=== PATIENT | female | born 1965 | race American Indian/Alaskan Native ===

== ENCOUNTER 2017-06-21 11:49 | Emergency (ER) | payer BC ==
[2017-06-21 12:42] LABS: Basophils % (Auto) 1.2 % (0.0-1.8); Eosinophils % (Auto) 1.6 % (0.0-4.3); Hematocrit 52.9 % (30.3-42.9); Hemoglobin 17.3 gm/dl (10.1-14.3); Mean Corpuscular HGB Conc 33 % (30-34); Mean Corpuscular Hemoglobin 28 pg (28-32); Mean Corpuscular Volume 84 fl (79-97); Platelet Count 213 K/mm3 (140-440); Red Blood Count 6.29 M/mm3 (3.65-5.03); White Blood Count 5.9 K/mm3 (4.5-11.0)
[2017-06-21] MEDS ORDERED: NORMODYNE IV ONE (12:47)
[2017-06-21 12:55] LABS: Anion Gap 19 mmol/L; BUN/Creatinine Ratio 13; Blood Urea Nitrogen 9 mg/dL (7-17); Calcium 9.3 mg/dL (8.4-10.2); Carbon Dioxide 26 mmol/L (22-30); Chloride 99.7 mmol/L (98-107); Glucose 114 mg/dL (65-100); Potassium 4.4 mmol/L (3.6-5.0); Sodium 140 mmol/L (137-145)
[2017-06-21] MEDS ORDERED: CATAPRES PO ONE (14:04)
[2017-06-21] MEDS ORDERED: CATAPRES ONE (14:06)
--- NOTE | 2017-06-21 14:38 | Emergency Department Report ---
HPI - General Chief Complaint: High BP Time Seen by Provider: 06/21/17 14:14 - HPI HPI: Room 3 The patient is a 52-year-old female presenting with a chief complaint of hypertension. The patient states she went to a clinic today and thought her blood pressure was elevated and was sent to the ED for evaluation/management. The patient states she's been out of her lisinopril, clonidine and metoprolol for approximately 2 days. Patient states she does feel sleepy and sluggish but denies pain of any type. Patient states she had a headache in triage but has since resolved and she has zero pain. Incidentally the patient states that she accidentally struck herself left arm with a box 2 days ago. Patient denies pain to states her left thigh has been red. Patient denies blurred vision. Location: [See above] Duration: [See above] Quality: Painless Severity: Moderate Modifying factors: [see above] Context: [see above] Mode of transportation: [not driving] ED Past Medical Hx - Past Medical History Previous Medical History?: Yes Hx Hypertension: Yes - Surgical History Past Surgical History?: Yes Additional Surgical History: c section - Family History Family history: no significant - Social History Smoking Status: Current Every Day Smoker (08/04 pack per day) Substance Use Type: None (denies illicit drug use) - Medications Home Medications: Home Medications Medication Instructions Recorded Confirmed Last Taken Type Metoprolol [Lopressor TAB] 100 mg PO BID #90 tablet 06/21/17 Unknown Rx cloNIDine [Catapres] 0.1 mg PO BID #90 tablet 06/21/17 Unknown Rx ED Review of Systems ROS: Stated complaint: BLOOD PRESSURE ELEVATED Other details as noted in HPI Eyes: other (red left eye). denies: eye pain, vision change ENT: denies: ear pain Cardiovascular: denies: chest pain Gastrointestinal: denies: abdominal pain, nausea, vomiting Genitourinary: denies: dysuria Musculoskeletal: denies: back pain Neurological: denies: headache Physical Exam - Physical Exam Vital Signs: Vital Signs 06/21/17 06/21/17 06/21/17 11:57 12:51 14:05 Temperature 98.4 F Pulse Rate 98 H 98 H 97 H Respiratory 16 Rate Blood Pressure 257/116 257/116 241/102 O2 Sat by Pulse 99 Oximetry Physical Exam: GENERAL: The patient is well-developed well-nourished female lying on stretcher not appearing to be in acute distress. [] HEENT: Normocephalic. Atraumatic. Extraocular motions are intact. Patient has moist mucous membranes. Slightly injected left eye. No hyphema or hypopyon seen. Concepcion lamp examination with fluorescein does not reveal corneal abrasion or streaming fluorescein NECK: Supple. Trachea midline CHEST/LUNGS: Clear to auscultation. There is no respiratory distress noted. HEART/CARDIOVASCULAR: Regular. There is no tachycardia. There is no gallop rub or murmur. ABDOMEN: Abdomen is soft, nontender. Patient has normal bowel sounds. There is no abdominal distention. SKIN: There is no rash. There is no edema. There is no diaphoresis. NEURO: The patient is awake, alert, and oriented. The patient is cooperative. The patient has no focal neurologic deficits. The patient has normal speech. Cranial nerves II through XII grossly intact, no drift MUSCULOSKELETAL: There is no evidence of acute injury. ED Course Vital Signs 06/21/17 06/21/17 06/21/17 11:57 12:51 14:05 Temperature 98.4 F Pulse Rate 98 H 98 H 97 H Respiratory 16 Rate Blood Pressure 257/116 257/116 241/102 O2 Sat by Pulse 99 Oximetry ED Medical Decision Making - Lab Data Result diagrams: 06/21/17 12:16 06/21/17 12:16 Laboratory Tests 06/21/17 06/21/17 06/21/17 12:16 12:16 15:06 WBC 5.9 RBC 6.29 H Hgb 17.3 H Hct 52.9 H MCV 84 MCH 28 MCHC 33 RDW 13.0 L Plt Count 213 Lymph % (Auto) 19.6 [place] % (Auto) 7.8 H Eos % (Auto) 1.6 Baso % (Auto) 1.2 Lymph # 1.1 L [place] # 0.5 Eos # 0.1 Baso # 0.1 Seg Neutrophils % 69.8 Seg Neutrophils # 4.1 Sodium 140 Potassium 4.4 Chloride 99.7 Carbon Dioxide 26 Anion Gap 19 BUN 9 Creatinine 0.7 Estimated GFR > 60 BUN/Creatinine Ratio 13 Glucose 114 H Calcium 9.3 Troponin T < 0.010 < 0.010 - EKG Data -: EKG Interpreted by Vt EKG shows normal: sinus rhythm Rate: normal - EKG Data When compared to previous EKG there are: previous EKG unavailable Interpretation: nonspecific ST-T wave destinee (T-wave inversion in lead aVL) - Differential Diagnosis hypertension, corneal abrasions Critical care attestation.: If time is entered above; I have spent that time in minutes in the direct care of this critically ill patient, excluding procedure time. ED Disposition Clinical Impression: Hypertension, Subconjunctival hemorrhage of left eye Disposition: DC-01 TO HOME OR SELFCARE Is pt being admited?: No Does the pt Need Aspirin: No Condition: Stable Instructions: Hypertension (ED) Additional Instructions: Return to the emergency department immediately should you develop worsening symptoms, fever, inability to tolerate food or liquid or any other concerns. Prescriptions: cloNIDine [Catapres] 0.1 mg PO BID #90 tablet Metoprolol [Lopressor TAB] 100 mg PO BID #90 tablet Referrals: PRIMARY CAREMD [Primary Care Provider] - 3-5 Days [facility] [Outside] - 3-5 Days BRAYDEN JACKSON MD [Staff Physician] - 3-5 Days (Dr. Jackson is an customer services manager. Please follow up with him for further evaluation) MANNIE NGUYỄN MD [Staff Physician] - 3-5 Days (Dr. Nguyễn is a primary physician. Please follow-up with him to be established as a patient) Time of Disposition: 16:46
[2017-06-21] MEDS ORDERED: TETRACAINE 0.5% ONE ×2 (14:58→16:42)
[2017-06-21] MEDS ORDERED: BSS ONE ×2 (14:58→16:42)
[2017-06-21] MEDS ORDERED: FUL-GLO OP ONE ×2 (14:58→16:42)
[2017-06-21] MEDS ORDERED: APRESOLINE IV ONE ×2 (15:55)
[2017-06-21 17:08] VITALS: BP 184/76
== END 2017-06-21 17:22 | disposition home or self-care (01) ==
LOC: ED 11:49
DX: I10 Essential (primary) hypertension (principal); H11.32 Conjunctival hemorrhage, left eye; F17.200 Nicotine dependence, unspecified, uncomplicated
CPT/HCPCS: 36415; 80048; 84484; 85025; 93005; 93010; 96374; 96375; 99284; J0360

== ENCOUNTER 2017-08-18 10:25 | Emergency (ER) | payer BC ==
[2017-08-18] MEDS ORDERED: TYLENOL PO ONE (11:21)
[2017-08-18] MEDS ORDERED: NORMODYNE IV ONE (11:21)
--- NOTE | 2017-08-18 11:27 | Emergency Department Report ---
ED General Adult HPI - General Chief complaint: High BP Stated complaint: HTN/HEADACHE Time Seen by Provider: 08/18/17 11:04 Source: patient Mode of arrival: Stretcher Limitations: No Limitations - History of Present Illness Initial comments: Mrs. Herrera is a pleasant 52-year-old female with severe hypertension. She normally takes metoprolol, clonidine and lisinopril. However, she stated during her ED stay evaluation in June. Lisinopril was discontinued by the physician. She did not have any history of kidney disease or allergic reaction due to the lisinopril. Today at her place of work, the nurse checked her blood pressure. Systolic was greater than 200 mm Hg. Diastolic blood pressure was 150 mm Hg. She is symptom-free except for very mild nondescript headache. She denies chest pain. She denies blurry vision. She denies bloody urine. She has not followed by primary care physician. She does smoke cigarettes. She works at an [employer] facility. She does have health insurance. - Related Data Previous Rx's Medication Instructions Recorded Last Taken Type Metoprolol [Lopressor TAB] 100 mg PO BID #90 tablet 06/21/17 Unknown Rx cloNIDine [Catapres] 0.1 mg PO BID #90 tablet 06/21/17 Unknown Rx Lisinopril 20 mg PO DAILY 30 Days #30 tablet 08/18/17 Unknown Rx cloNIDine [Catapres] 0.2 mg PO BID 30 Days #60 tablet 08/18/17 Unknown Rx Allergies Allergy/AdvReac Type Severity Reaction Status Date / Time No Known Allergies Allergy Verified 06/21/17 11:56 ED Review of Systems ROS: Stated complaint: HTN/HEADACHE Other details as noted in HPI Comment: All other systems reviewed and negative Constitutional: denies: fever, malaise Respiratory: denies: cough Cardiovascular: denies: chest pain ED Past Medical Hx - Past Medical History Hx Hypertension: Yes - Surgical History Additional Surgical History: c section - Social History Smoking Status: Current Every Day Smoker (1/14 pack per day) Substance Use Type: None (denies illicit drug use) - Medications Home Medications: Home Medications Medication Instructions Recorded Confirmed Last Taken Type Metoprolol [Lopressor TAB] 100 mg PO BID #90 tablet 06/21/17 Unknown Rx cloNIDine [Catapres] 0.1 mg PO BID #90 tablet 12/01/17 Unknown Rx Lisinopril 20 mg PO DAILY 30 Days #30 tablet 08/18/17 Unknown Rx cloNIDine [Catapres] 0.2 mg PO BID 30 Days #60 tablet 08/18/17 Unknown Rx ED Physical Exam - General Limitations: No Limitations General appearance: alert, in no apparent distress - Head Head exam: Present: atraumatic, normocephalic - Eye Eye exam: Present: normal appearance, PERRL - ENT ENT exam: Present: mucous membranes moist - Neck Neck exam: Present: normal inspection. Absent: tenderness, meningismus - Respiratory Respiratory exam: Present: normal lung sounds bilaterally. Absent: respiratory distress, wheezes, rales, rhonchi - Cardiovascular Cardiovascular Exam: Present: regular rate, normal rhythm, normal heart sounds. Absent: systolic murmur, diastolic murmur, rubs, gallop - GI/Abdominal GI/Abdominal exam: Present: soft, normal bowel sounds. Absent: distended, tenderness, guarding, rebound - Extremities Exam Extremities exam: Present: normal inspection. Absent: pedal edema - Back Exam Back exam: Present: normal inspection - Neurological Exam Neurological exam: Present: alert, oriented X3 - Psychiatric Psychiatric exam: Present: normal affect, normal mood - Skin Skin exam: Present: warm, dry, intact, normal color. Absent: rash ED Course Vital Signs 08/18/17 08/18/17 08/18/17 10:58 11:08 11:11 Temperature 98.6 F Pulse Rate 86 90 Respiratory 18 Rate Blood Pressure 241/98 Blood Pressure [Right] O2 Sat by Pulse 98 Oximetry 08/18/17 08/18/17 08/18/17 11:40 11:41 12:41 Temperature Pulse Rate 87 Respiratory 16 16 Rate Blood Pressure 206/107 Blood Pressure [Right] O2 Sat by Pulse Oximetry 08/18/17 08/18/17 13:05 15:08 Temperature Pulse Rate 79 87 Respiratory 16 Rate Blood Pressure Blood Pressure 198/84 [Right] O2 Sat by Pulse 100 Oximetry ED Medical Decision Making - Lab Data Result diagrams: 08/18/17 11:58 08/18/17 11:58 Laboratory Results - last 24 hr 08/18/17 08/18/17 11:58 11:58 WBC 6.8 RBC 5.97 H Hgb 15.8 H Hct 49.3 H MCV 83 MCH 27 L MCHC 32 RDW 12.8 L Plt Count 162 Lymph % (Auto) 18.5 [place] % (Auto) 5.4 Eos % (Auto) 1.2 Baso % (Auto) 2.2 H Lymph # 1.3 [place] # 0.4 Eos # 0.1 Baso # 0.2 H Seg Neutrophils % 72.7 H Seg Neutrophils # 5.0 Sodium 139 Potassium 4.0 Chloride 99.1 Carbon Dioxide 26 Anion Gap 18 BUN 10 Creatinine 0.6 L Estimated GFR > 60 BUN/Creatinine Ratio 17 Glucose 104 H Calcium 9.3 Vital Signs - 24 hr 08/18/17 08/18/17 08/18/17 10:58 11:08 11:11 Temperature 98.6 F Pulse Rate 86 90 Respiratory 18 Rate Blood Pressure 241/98 Blood Pressure [Right] O2 Sat by Pulse 98 Oximetry 08/18/17 08/18/17 08/18/17 11:40 11:41 12:41 Temperature Pulse Rate 87 Respiratory 16 16 Rate Blood Pressure 206/107 Blood Pressure [Right] O2 Sat by Pulse Oximetry 08/18/17 08/18/17 13:05 15:08 Temperature Pulse Rate 79 87 Respiratory 16 Rate Blood Pressure Blood Pressure 198/84 [Right] O2 Sat by Pulse 100 Oximetry - EKG Data -: EKG Interpreted by [place] - EKG Data 08/18/17 11:27 EKG obtained at 1100 Normal sinus rhythm rate of 80 left axis deviation no ST elevation positive LVH no signs of ischemia, no signs of infarct right bundle branch block present EKG is unchanged from 06/21/2017 - Medical Decision Making Mrs. Herrera has severe hypertension. She is symptom-free here in the ED. no evidence of end organ damage. She states that normally her blood pressure is elevated when she runs out of medication. She does not have a primary care physician. She states that her blood pressure is not well-controlled. I Have referred her to a primary care physician. I reviewed the electronic record. I reviewed the documentation by provider in June. No mention of lisinopril discontinuation. I will restart lisinopril. Also will increase clonidine to 0.2 mg twice a day from 0.1 mg BID Discharged home in stable condition Critical care attestation.: If time is entered above; I have spent that time in minutes in the direct care of this critically ill patient, excluding procedure time. ED Disposition Clinical Impression: Hypertensive urgency, malignant Disposition: DC-01 TO HOME OR SELFCARE Is pt being admited?: No Does the pt Need Aspirin: No Condition: Stable Instructions: Hypertensive Crisis (ED), Hypertension (ED) Prescriptions: cloNIDine [Catapres] 0.2 mg PO BID 30 Days #60 tablet Lisinopril 20 mg PO DAILY 30 Days #30 tablet Referrals: MANNIE NGUYỄN MD [Staff Physician] - 3-5 Days Time of Disposition: 15:18
[2017-08-18 12:17] LABS: Basophils # (Auto) 0.2 K/mm3 (0.0-0.1); Basophils % (Auto) 2.2 % (0.0-1.8); Eosinophils # (Auto) 0.1 K/mm3 (0.0-0.4); Eosinophils % (Auto) 1.2 % (0.0-4.3); Hematocrit 49.3 % (30.3-42.9); Hemoglobin 15.8 gm/dl (10.1-14.3); Lymphocytes # (Auto) 1.3 K/mm3 (1.2-5.4); Lymphocytes % (Auto) 18.5 % (13.4-35.0); Mean Corpuscular HGB Conc 32 % (30-34); Mean Corpuscular Hemoglobin 27 pg (28-32); Mean Corpuscular Volume 83 fl (79-97); Monocytes # (Auto) 0.4 K/mm3 (0.0-0.8); Monocytes % (Auto) 5.4 % (0.0-7.3); Platelet Count 162 K/mm3 (140-440); Red Blood Count 5.97 M/mm3 (3.65-5.03); Red Cell Distribution Width 12.8 % (13.2-15.2)
[2017-08-18] MEDS ORDERED: CATAPRES PO ONE (12:44)
[2017-08-18 13:01] LABS: BUN/Creatinine Ratio 17; Blood Urea Nitrogen 10 mg/dL (7-17); Calcium 9.3 mg/dL (8.4-10.2); Hemolysis Index 27
[2017-08-18 15:09] VITALS: BP 198/84
== END 2017-08-18 15:35 | disposition home or self-care (01) ==
LOC: ED 10:25
DX: I10 Essential (primary) hypertension (principal); F17.200 Nicotine dependence, unspecified, uncomplicated
CPT/HCPCS: 36415; 80048; 85025; 93005; 93010; 96374

== ENCOUNTER 2017-08-23 13:20 | Emergency (ER) | payer BC ==
[2017-08-23] MEDS ORDERED: NORMODYNE IV ONE ×2 (14:45→16:43)
[2017-08-23] MEDS ORDERED: APRESOLINE IV ONE (16:43)
--- NOTE | 2017-08-23 17:37 | Emergency Department Report ---
HPI - General Chief Complaint: High BP Time Seen by Provider: 08/23/17 14:43 - HPI HPI: The patient is a 52-year-old female who presents for evaluation of elevated blood pressure and lightheadedness. The patient reports mild lightheadedness since this morning, 6 hours prior to my evaluation,, exacerbated with standing up or position changes, improved with lying flat. She says that she was sent from [facility] due to recurrence of significantly elevated blood pressure. The patient denies fever, neck pain, parasthesias, motor deficit, chest pain, syncope, dyspnea, cough, hemoptysis, palpitations, unilateral leg swelling, calf muscle pain. Patient also denies cocaine or other stimulant use. ED Past Medical Hx - Past Medical History Hx Hypertension: Yes - Surgical History Additional Surgical History: c section - Social History Smoking Status: Never Smoker Substance Use Type: None - Medications Home Medications: Home Medications Medication Instructions Recorded Confirmed Last Taken Type Metoprolol [Lopressor TAB] 100 mg PO BID #90 tablet 06/21/17 Unknown Rx cloNIDine [Catapres] 0.1 mg PO BID #90 tablet 06/21/17 Unknown Rx Lisinopril 20 mg PO DAILY 30 Days #30 tablet 08/18/17 Unknown Rx cloNIDine [Catapres] 0.2 mg PO BID 30 Days #60 tablet 08/18/17 Unknown Rx Ondansetron [Zofran Odt] 4 mg PO Q8HR #20 tab.rapdis 08/23/17 Unknown Rx ED Review of Systems ROS: Stated complaint: SENT FROM CLINIC Other details as noted in HPI Constitutional: reports lightheadedness denies: fever ENT: denies: throat or neck pain Respiratory: denies: cough, shortness of breath Cardiovascular: denies: chest pain Endocrine: denies unexplained weight loss or gain Gastrointestinal: denies: abdominal pain, nausea Genitourinary: denies: dysuria Musculoskeletal: denies: leg swelling Skin: denies: rash Neurological: denies: headache Hematological/Lymphatic: denies: easy bleeding or easy bruising Psych: denies sadness or hopelessness Physical Exam - Physical Exam Vital Signs: Vital Signs 08/23/17 08/23/17 08/23/17 13:32 14:30 14:46 Temperature 98.4 F Pulse Rate 80 82 88 Respiratory 18 28 H 21 Rate Blood Pressure 239/100 205/97 205/97 O2 Sat by Pulse 100 98 99 Oximetry 08/23/17 08/23/17 08/23/17 15:00 15:16 15:22 Temperature Pulse Rate 76 77 Respiratory 17 17 18 Rate Blood Pressure 202/89 163/71 O2 Sat by Pulse 99 98 Oximetry 08/23/17 08/23/17 08/23/17 15:30 15:38 15:46 Temperature Pulse Rate 82 83 78 Respiratory 18 20 Rate Blood Pressure 196/82 187/83 O2 Sat by Pulse 98 97 Oximetry 08/23/17 08/23/17 08/23/17 16:00 16:16 16:30 Temperature Pulse Rate 76 78 77 Respiratory 16 20 20 Rate Blood Pressure 199/87 199/87 199/87 O2 Sat by Pulse 97 99 99 Oximetry 08/23/17 17:01 Temperature Pulse Rate 90 Respiratory 29 H Rate Blood Pressure 224/86 O2 Sat by Pulse 99 Oximetry Physical Exam: General: well-nourished, well-developed, no acute distress Head: Normocephalic, atraumatic Eyes: normal sclera, PERRL, EOM intact ENT: Mucous membranes are pale and dry Neck: No neck stiffness, no cervical adenopathy Respiratory: Breath sounds equal bilaterally, no wheezing, rales, or rhonchi Cardio: S1 and S2 present, no murmurs, rubs, gallops, capillary refill is delayed Abdomen: Normoactive bowel sounds, soft abdomen, no rigidity, no guarding or rebound tenderness Chest WALL/Back: No tenderness to palpation of the chest wall, no CVA tenderness with percussion Musc: No pitting edema Skin: No rash Neuro: alert oriented x4, normal cognition, speech normal, no facial drooping, no uvula or tongue deviation on protrusion, no deficit with rotation of neck or shoulder shrug, no obvious gross motor deficit in the upper or lower extremities with flexion or extension at the shoulder, elbow, wrist, hip, knee, or ankle bilaterally, no obvious gross sensation deficit to crude touch or 2 pt discrimination, 2+ symmetric reflexes on DTR testing, no coordination deficit with [id number] or [id number] testing, romberg negative, patient able to to ambulate without abnormal gait Psych: Normal affect ED Course Vital Signs 08/23/17 08/23/17 08/23/17 13:32 14:30 14:46 Temperature 98.4 F Pulse Rate 80 82 88 Respiratory 18 28 H 21 Rate Blood Pressure 239/100 205/97 205/97 O2 Sat by Pulse 100 98 99 Oximetry 08/23/17 08/23/17 08/23/17 15:00 15:16 15:22 Temperature Pulse Rate 76 77 Respiratory 17 17 18 Rate Blood Pressure 202/89 163/71 O2 Sat by Pulse 99 98 Oximetry 08/23/17 08/23/17 08/23/17 15:30 15:38 15:46 Temperature Pulse Rate 82 83 78 Respiratory 18 20 Rate Blood Pressure 196/82 187/83 O2 Sat by Pulse 98 97 Oximetry 08/23/17 08/23/17 08/23/17 16:00 16:16 16:30 Temperature Pulse Rate 76 78 77 Respiratory 16 20 20 Rate Blood Pressure 199/87 199/87 199/87 O2 Sat by Pulse 97 99 99 Oximetry 08/23/17 17:01 Temperature Pulse Rate 90 Respiratory 29 H Rate Blood Pressure 224/86 O2 Sat by Pulse 99 Oximetry ED Medical Decision Making - Medical Decision Making The patient was seen and examined by myself. The patient is placed on a monitor and storage bin tender and continuous pulse ox. On initial evaluation, the patient was found to be in no distress, with a significant elevated blood pressure of 240/ 100. EKG was obtained and was grossly unchanged from previous EKG. The patient was given multiple doses of IV Apresoline and labetalol and her blood pressure decreased below range concerning for hypertensive emergency. The patient was reevaluated and reported that their symptoms were markedly improved. The patient is stable for discharge with outpatient follow-up. The patient is given follow-up and return instructions. The patient expressed understanding and agreed with the plan. The patient is discharged in stable condition. Critical care attestation.: If time is entered above; I have spent that time in minutes in the direct care of this critically ill patient, excluding procedure time. ED Disposition Clinical Impression: Hypertensive urgency, Orthostatic dizziness, Dehydration, mild Disposition: DC-01 TO HOME OR SELFCARE Is pt being admited?: No Does the pt Need Aspirin: No Condition: Stable Instructions: Hypertension (ED), Chronic Hypertension (ED) Prescriptions: Ondansetron [Zofran Odt] 4 mg PO Q8HR #20 tab.rapdis Referrals: ELVIRA CONNER MD [Primary Care Provider] - 3-5 Days Time of Disposition: 17:48
[2017-08-23] MEDS ORDERED: CATAPRES PO ONE ×2 (17:46)
[2017-08-23] MEDS ORDERED: ZOFRAN ODT PO ONE (17:46)
[2017-08-23] MEDS ORDERED: ZOFRAN IV ONE (17:46)
[2017-08-23 18:37] VITALS: BP 195/85
== END 2017-08-23 18:38 | disposition home or self-care (01) ==
LOC: ED 13:20
DX: I10 Essential (primary) hypertension (principal); R42 Dizziness and giddiness; E86.0 Dehydration
CPT/HCPCS: 93005; 93010; 96374; 96375; 96376; 99283; J0360; Q0162

== ENCOUNTER 2020-09-25 11:09 | Emergency (ER) | payer BC, OTHER ==
[2020-09-25 11:24] VITALS: BP 190/77
--- NOTE | 2020-09-25 11:36 | Emergency Department Report ---
ED Recheck HPI - General Chief Complaint: Recheck/Abnormal Lab/Rx Stated Complaint: BP REFILL Time Seen by Provider: 09/25/20 11:18 Source: patient Mode of arrival: Ambulatory Limitations: No Limitations - History of Present Illness Initial Comments: This is a 55-year-old female nontoxic, well nourished in appearance, no acute signs of distress presents to the ED with c/o of medication refill of blood pressure. Patient stated she is unable to get in an appointment with her PCP due to Covid and only seen patient once a week. Patient stated last dose was this morning. Patient does have does have her MD blood pressure medication bottles. Patient otherwise denies any other complaints or symptoms. Patient stated she is currently asymptomatic. Denies any chest pain, shortness of breath, fever, chills, nausea, vomiting, headache or stiff neck. MD Complaint: medication refill request -: This morning Returns Today for: request for prescription Symptoms Since Prior Visit: no new symptoms Associated Symptoms: none. denies: fever, chills, chest pain, shortness of breath, rash, malaise, nasuea, abdominal pain - Related Data Previous Rx's Medication Instructions Recorded Last Taken Type Metoprolol [Lopressor TAB] 100 mg PO BID #90 tablet 06/21/17 Unknown Rx cloNIDine [Catapres] 0.1 mg PO BID #90 tablet 06/21/17 Unknown Rx cloNIDine [Catapres] 0.2 mg PO BID 30 Days #60 tablet 08/18/17 Unknown Rx lisinopriL [Lisinopril] 20 mg PO DAILY 30 Days #30 tablet 08/18/17 Unknown Rx Ondansetron [Zofran Odt] 4 mg PO Q8HR #20 tab.rapdis 08/23/17 Unknown Rx Losartan [Cozaar] 100 mg PO QDAY #30 tablet 09/25/20 Unknown Rx NIFEdipine [Nifedipine ER] 30 mg PO DAILY #30 tablet.er 09/25/20 Unknown Rx hydroCHLOROthiazide [HCTZ] 25 mg PO QDAY #30 tablet 09/25/20 Unknown Rx Allergies Allergy/AdvReac Type Severity Reaction Status Date / Time No Known Allergies Allergy Verified 08/23/17 13:29 ED Review of Systems ROS: Stated complaint: BP REFILL Other details as noted in HPI Comment: All other systems reviewed and negative Constitutional: denies: chills, fever Eyes: denies: eye pain, eye discharge, vision change ENT: denies: ear pain, throat pain Respiratory: denies: cough, shortness of breath, wheezing Cardiovascular: denies: chest pain, palpitations Endocrine: no symptoms reported Gastrointestinal: denies: abdominal pain, nausea, diarrhea Genitourinary: denies: urgency, dysuria, discharge Musculoskeletal: denies: back pain, joint swelling, arthralgia Skin: denies: rash, lesions Neurological: denies: headache, weakness, paresthesias Psychiatric: denies: anxiety, depression Hematological/Lymphatic: denies: easy bleeding, easy bruising ED Past Medical Hx - Past Medical History Previous Medical History?: Yes Hx Hypertension: Yes - Surgical History Past Surgical History?: Yes Additional Surgical History: c section - Social History Smoking Status: Never Smoker Substance Use Type: None - Medications Home Medications: Home Medications Medication Instructions Recorded Confirmed Last Taken Type Metoprolol [Lopressor TAB] 100 mg PO BID #90 tablet 06/21/17 Unknown Rx cloNIDine [Catapres] 0.1 mg PO BID #90 tablet 06/21/17 Unknown Rx cloNIDine [Catapres] 0.2 mg PO BID 30 Days #60 tablet 08/18/17 Unknown Rx lisinopriL [Lisinopril] 20 mg PO DAILY 30 Days #30 tablet 08/18/17 Unknown Rx Ondansetron [Zofran Odt] 4 mg PO Q8HR #20 tab.rapdis 08/23/17 Unknown Rx Losartan [Cozaar] 100 mg PO QDAY #30 tablet 09/25/20 Unknown Rx NIFEdipine [Nifedipine ER] 30 mg PO DAILY #30 tablet.er 09/25/20 Unknown Rx hydroCHLOROthiazide [HCTZ] 25 mg PO QDAY #30 tablet 09/25/20 Unknown Rx ED Physical Exam - General Limitations: No Limitations General appearance: alert, in no apparent distress - Head Head exam: Present: atraumatic, normocephalic - Eye Eye exam: Present: normal appearance - ENT ENT exam: Present: mucous membranes moist - Neck Neck exam: Present: normal inspection, full ROM - Respiratory Respiratory exam: Absent: respiratory distress - Cardiovascular Cardiovascular Exam: Present: regular rate - Extremities Exam Extremities exam: Present: full ROM - Back Exam Back exam: Present: full ROM - Neurological Exam Neurological exam: Present: alert, oriented X3, normal gait - Psychiatric Psychiatric exam: Present: normal affect, normal mood - Skin Skin exam: Present: warm, dry, intact, normal color. Absent: rash ED Course Vital Signs 09/25/20 11:12 Temperature 97.9 F Pulse Rate 84 Respiratory 16 Rate Blood Pressure 190/77 O2 Sat by Pulse 98 Oximetry - Reevaluation(s) Reevaluation #1: 09/25/20 11:34 Patient is speaking in full sentences with no signs of distress noted. ED Recheck MDM - Medical Decision Making Patient stable and was examined by me. Vital signs are stable. Patient will be discharged with medication prescriptions. According to ACEP: (1) in ED patients with asymptomatic markedly elevated blood pressure, routine screening for acute target organ injury (eg, serum creatinine, urinalysis, ECG) is not required. (1) In patients with asymptomatic markedly elevated blood pressure, routine ED medical intervention is not required. I did refer patient to several different other providers. Patient was instructed to follow-up with a primary care doctor in 3-5 days or if symptoms worsen and continue return to emergency room as soon as possible. At time of discharge, the patient does not seem toxic or ill in appearance. No acute signs of distress noted. Patient agrees to discharge treatment plan of care. No further questions noted by the patient. Critical care attestation.: If time is entered above; I have spent that time in minutes in the direct care of this critically ill patient, excluding procedure time. ED Disposition Clinical Impression: Medication refill Disposition: DC-01 TO HOME OR SELFCARE Is pt being admited?: No Does the pt Need Aspirin: No Condition: Stable Additional Instructions: Follow-up with a primary care doctor in 3-5 days or if symptoms worsen and continue return to emergency room as soon as possible. Prescriptions: Losartan [Cozaar] 100 mg PO QDAY #30 tablet hydroCHLOROthiazide [HCTZ] 25 mg PO QDAY #30 tablet NIFEdipine [Nifedipine ER] 30 mg PO DAILY #30 tablet.er Referrals: GUILLERMO MCNAIR MD [Primary Care Provider] - 3-5 Days DANN BURKETT MD [Staff Physician] - 3-5 Days [facility] [Provider Group] - 3-5 Days [facility] [Outside] - 3-5 Days Forms: Work/School Release Form(ED) Time of Disposition: 11:36
== END 2020-09-25 11:46 | disposition home or self-care (01) ==
LOC: ED 11:09
DX: I10 Essential (primary) hypertension (principal); Z76.0 Encounter for issue of repeat prescription; Z98.890 Other specified postprocedural states; Z79.899 Other long term (current) drug therapy
CPT/HCPCS: 99282

== ENCOUNTER 2020-10-28 20:47 | Emergency (ER) | payer SELFPAY ==
[2020-10-28 22:58] VITALS: BP 188/76
--- NOTE | 2020-10-28 23:35 | Emergency Department Report ---
ED General Adult HPI - General Chief complaint: High BP Stated complaint: MEDICATION REFILL Time Seen by Provider: 10/28/20 23:13 Source: patient Mode of arrival: Ambulatory Limitations: No Limitations - History of Present Illness Initial comments: 55-year-old obese F Ethiopian female past medical history of hypertension presents emerged department complaining of running out of her blood pressure medications and seeks a medication refill today until she can get them with her regular doctor. She reports being asymptomatic has no other complaints or c oncerns she only wants her medications to be refilled. She denies any chest pain, shortness of breath, palpitations, lower extremity swelling, abdominal pain, nausea, vomiting, headache, blurred vision, numbness, tingling. Associated Symptoms: denies other symptoms - Related Data Previous Rx's Medication Instructions Recorded Last Taken Type Losartan [Cozaar] 100 mg PO QDAY #30 tablet 10/28/20 Unknown Rx Methimazole 5 mg PO BID #60 10/28/20 Unknown Rx NIFEdipine [Nifedipine ER] 30 mg PO DAILY #30 tablet.er 10/28/20 Unknown Rx hydroCHLOROthiazide [HCTZ] 25 mg PO QDAY #30 tablet 10/28/20 Unknown Rx Allergies Allergy/AdvReac Type Severity Reaction Status Date / Time No Known Allergies Allergy Verified 08/23/17 13:29 ED Review of Systems ROS: Stated complaint: MEDICATION REFILL Other details as noted in HPI Comment: All other systems reviewed and negative ED Past Medical Hx - Past Medical History Previous Medical History?: Yes Hx Hypertension: Yes - Surgical History Past Surgical History?: Yes Additional Surgical History: c section - Social History Smoking Status: Never Smoker Substance Use Type: None - Medications Home Medications: Home Medications Medication Instructions Recorded Confirmed Last Taken Type Losartan [Cozaar] 100 mg PO QDAY #30 tablet 10/28/20 Unknown Rx Methimazole 5 mg PO BID #60 10/28/20 Unknown Rx NIFEdipine [Nifedipine ER] 30 mg PO DAILY #30 tablet.er 10/28/20 Unknown Rx hydroCHLOROthiazide [HCTZ] 25 mg PO QDAY #30 tablet 10/28/20 Unknown Rx ED Physical Exam - General Limitations: No Limitations General appearance: alert, in no apparent distress - Head Head exam: Present: atraumatic, normocephalic - Eye Eye exam: Present: normal appearance - ENT ENT exam: Present: mucous membranes moist - Neck Neck exam: Present: normal inspection - Respiratory Respiratory exam: Present: normal lung sounds bilaterally. Absent: respiratory distress - Cardiovascular Cardiovascular Exam: Present: regular rate, normal rhythm. Absent: systolic murmur, diastolic murmur, rubs, gallop - GI/Abdominal GI/Abdominal exam: Present: soft, normal bowel sounds - Extremities Exam Extremities exam: Present: normal inspection - Back Exam Back exam: Present: normal inspection - Neurological Exam Neurological exam: Present: alert, oriented X3 - Psychiatric Psychiatric exam: Present: normal affect, normal mood - Skin Skin exam: Present: warm, dry, intact, normal color. Absent: rash ED Course Vital Signs 10/28/20 22:53 Temperature 98.7 F Pulse Rate 113 H Respiratory 18 Rate Blood Pressure 188/76 O2 Sat by Pulse 97 Oximetry ED Medical Decision Making - Medical Decision Making 55-year-old obese -[place] female out of her blood pressure medication presents emergency department holding prescription bottles that have enough medications for 3 days advised that she has already gone to the pharmacy and they gave her temporary medication to hold her over to get refills. She is asymptomatic at this present time speaks in full sentences alert and oriented x3. Critical care attestation.: If time is entered above; I have spent that time in minutes in the direct care of this critically ill patient, excluding procedure time. ED Disposition Clinical Impression: Medication refill, HTN (hypertension) Disposition: DC-01 TO HOME OR SELFCARE Is pt being admited?: No Does the pt Need Aspirin: No Condition: Stable Instructions: Hypertension, Adult, [id number], Preventing Hypertension, Intracerebral Hemorrhage, Managing Your Hypertension, Hypertension (ED) Prescriptions: Losartan [Cozaar] 100 mg PO QDAY #30 tablet hydroCHLOROthiazide [HCTZ] 25 mg PO QDAY #30 tablet Methimazole 5 mg PO BID #60 NIFEdipine [Nifedipine ER] 30 mg PO DAILY #30 tablet.er Referrals: [facility] [Provider Group] - 3-5 Days [facility], [Primary Care Provider] - 3-5 Days
== END 2020-10-28 23:54 | disposition home or self-care (01) ==
LOC: ED 20:47
DX: I10 Essential (primary) hypertension (principal); Z76.0 Encounter for issue of repeat prescription; Z79.899 Other long term (current) drug therapy
CPT/HCPCS: 99282